=== PATIENT | female | born 1975 | race Caucasian/White ===

== ENCOUNTER 2021-05-13 08:56 | Outpatient (CLI) | payer OTHER | END 2021-05-13 08:57 | disposition home or self-care (01) | LOC: BICMRI 08:56 | PROVIDERS: ATTEND Obstetrics & Gynecology Gynecologic Oncology | DX: R19.07 Generalized intra-abdominal and pelvic swelling, mass and lump (principal); D25.9 Leiomyoma of uterus, unspecified; N94.89 Other specified conditions associated with female genital organs and menstrual cycle; M43.16 Spondylolisthesis, lumbar region | CPT/HCPCS: 72195 ==